=== PATIENT | female | born 1995 | race Asian ===

== ENCOUNTER 2021-01-27 08:00 | Outpatient (CLI) | payer OTHER ==
[2021-01-28 13:05] LABS: BILIRUBIN,URINE NEGATIVE (NEGATIVE); GLUCOSE, URINE (UA) NEGATIVE (NEGATIVE); KETONES,URINE (UA) NEGATIVE (NEGATIVE); LEUKOCYTE ESTERASE, URINE NEGATIVE (NEGATIVE); NITRITE,URINE NEGATIVE (NEGATIVE); OCCULT BLOOD,URINE TRACE-INTA (NEGATIVE); PROTEIN,URINE NEGATIVE (NEGATIVE); UROBILINOGEN,URINE 0.2 (NORMAL) E.U./dL (NORMAL)
[2021-01-28 13:10] LABS: CLARITY,URINE CLOUDY (CLEAR)
[2021-01-28 13:11] LABS: AMORPHOUS SEDIMENT,UR Few /LPF; BACTERIA,URINE Moderate /HPF (None Seen); SQUAMOUS EPITHELIAL CELL,UR MANY Squamous (<= Few); WBC,URINE 0-3 /HPF (0-5)
== END 2021-01-27 23:59 | disposition home or self-care (01) ==
LOC: LAB.R 08:00
PROVIDERS: ATTEND Nurse Practitioner Obstetrics & Gynecology
DX: Z32.01 Encounter for pregnancy test, result positive (principal)
CPT/HCPCS: 81001; 87086

== ENCOUNTER 2021-02-10 08:12 | Outpatient (CLI) | payer OTHER ==
--- NOTE | 2021-02-10 12:42 | Ultrasound Report ---
PROCEDURE: OB First Trimester INDICATIONS: TEST POSITIVE OUTSIDE/PRIOR DATING DATA: Last menstrual period (LMP): 11/16/2020. LMP-based estimated date of delivery (PK): 08/23/2021. First dating scan (date and location): 02/10/2021. Estimated date of delivery (PK) from first dating scan: 08/28/2021. TECHNIQUE: Real-time scanning was performed of the fetus and maternal pelvic organs, with image documentation. COMPARISON: None. FINDINGS: Embryo: Single living intrauterine gestation with estimated sonographic gestational age of approxima tely 11 weeks and 4 days based off crown-rump length measurement of approximately 4.9 cm. heart rate measured 162 bpm. No perigestational hemorrhage. Measurement variability in dating: +/- 4 weeks by LMP, +/- 7 days by mean sac diameter (use before 6 weeks gestation if crown-rump length not able to be measured), +/- 5 days by crown-rump length (6-12 weeks gestation). Maternal organs: Ovaries appear unremarkable. Maternal cervical length measured 3.3 cm. IMPRESSION: 1. Single living intrauterine gestation with estimated sonographic gestational age of approximately 1 1 weeks and 4 days which correlates with an estimated date of delivery of 08/28/2021. 2. Recommend continued clinical surveillance and follow-up imaging with routine second trimester feta l anatomic screening survey. Reviewed by: Tyrese Ordonez MD on 02/10/2021 11:41 AM MELINDA Approved by: Tyrese Ordonez MD on 02/10/2021 11:41 AM MELINDA Station ID: [id number]
== END 2021-02-10 08:13 | disposition home or self-care (01) ==
LOC: DI 08:12
PROVIDERS: ATTEND Nurse Practitioner Obstetrics & Gynecology
DX: Z32.01 Encounter for pregnancy test, result positive (principal)

== ENCOUNTER 2021-03-10 16:12 | Outpatient (CLI) | payer OTHER ==
[2021-03-11 08:47] LABS: HIV AG/AB 4TH GEN NON-REACTIVE (NON-REACTIVE)
[2021-03-11 12:26] LABS: HEPATITIS C ANTIBODY NON-REACTIVE (NON-REACTIVE)
[2021-03-11 13:01] LABS: AFP MOM 0.68; AGE RISK DOWN SYNDROME 1 IN 923; CALC'D GESTATIONAL AGE 16.3 weeks; CIGARETTE SMOKER? NOT GIVEN; DONOR AGE: EGG RETRIEVAL NOT GIVEN; DONOR EGG NO; ESTRIOL MOM 1.48; HCG MOM 0.91; HX OF NEURAL TUBE DEFECTS NO; INHIBIN A MOM 1.24; INSULIN DEPEND DIABETIC NO; MATERNAL WEIGHT 112 lbs; MSS DOWN SYNDROME RISK 1 IN 2256; MSS3 TRISOMY 18 RISK <1 IN 5000; NUMBER OF FETUSES 1; PREV PREGNANCY DOWN SYND NO; RISK FOR ONTD <1 IN 5000
== END 2021-03-10 16:13 | disposition home or self-care (01) ==
LOC: LAB 16:12
PROVIDERS: ATTEND Radiology Diagnostic Radiology
DX: Z34.90 Encounter for supervision of normal pregnancy, unspecified, unspecified trimester (principal); Z36.0 Encounter for antenatal screening for chromosomal anomalies; Z36.89 Encounter for other specified antenatal screening
CPT/HCPCS: 36415; 81511; 86762; 86787; 86803; 87389

== ENCOUNTER 2021-04-02 14:00 | Outpatient (CLI) | payer OTHER ==
--- NOTE | 2021-04-02 16:17 | Ultrasound Report ---
PROCEDURE: OB Detailed Eval INDICATIONS: SUPERVISION OF NORMAL OUTSIDE/PRIOR DATING DATA: Last menstrual period (LMP): 11/16/2020. LMP-based estimated date of delivery (PK): 08/23/2021. First dating scan (date and location): 02/10/2021. Estimated date of delivery (PK) from first dating scan: 08/28/2021. The below data below was generated using the calculated PK of 08/28/2021 TECHNIQUE: Real-time scanning was performed of the fetus, with image documentation and biometric measurements. Endovaginal scanning: Not indicated COMPARISON: 02/10/2021. FINDINGS: General: A single living intrauterine gestation is present. Presentation: Variable. Placenta: Placental position is anterior, without previa. Amniotic fluid index: 16.7 cm, thickness is greater than 50% for gestational age. heart rate: 153 beats per minute. Maternal cervical canal: 4.2 cm long; normal length is 2.5 cm or more. biometrics: Biparietal diameter: 4.5 cm, 19 weeks, 4 days Head circumference: 16.5 cm, 19 weeks, 1 day Abdominal circumference: 14.7 cm, 20 weeks, 0 day Femur length: 2.9 cm, 18 weeks, 6 days Estimated gestational age from initial scan: 18 weeks, 6 days. Composite gestational age from present scan: 19 weeks, 2 days Estimated weight and percentile: 292 g, 78th percentile. Measurement variability in biometric dating: +/- 10 days from 12-20 weeks gestation, +/- 2 weeks from 20-30 weeks gestation, +/- 3 weeks at 30 weeks gestation or later. Anatomic survey: Neuro: Ventricles are normal at less than 10 mm. Cisterna magna is normal at 3-11 mm. Cerebellum i s normal in size and morphology. Nuchal skin fold: Normal at less than 6 mm between 14 and 20 weeks gestational age. Face: Nose and lips, facial profile are normal. Spine: No evidence for spina bifida. Heart: 4-chambered heart is present, with normal ventricular outflow tracts. Diaphragm: Diaphragm is intact. Stomach: Left-sided stomach is present. Kidneys: No hydronephrosis. Normal is less than 5 mm in 2nd trimester, less than 7 mm in 3rd trimester. Cord: 3 vessel cord has orthotopic insertion. Bladder: Normal in size. Extremities: All 4 extremities are visualized. IMPRESSION: 1. Single live intrauterine with fetus in variable presentation. heart rate is 153 bp m. Normal amount of amniotic fluid. Normal growth. Estimated weight is at 78 percentile. 2. Normal anatomic survey. Reviewed by: Olivier Jennings MD on 04/02/2021 4:15 PM PDT Approved by: Olivier Jennings MD on 04/02/2021 4:15 PM PDT Station ID: [id number]
== END 2021-04-02 14:01 | disposition home or self-care (01) ==
LOC: DI 14:00
PROVIDERS: ATTEND Advanced Practice Midwife
DX: Z34.02 Encounter for supervision of normal first pregnancy, second trimester (principal)

== ENCOUNTER 2021-05-19 08:04 | Outpatient (CLI) | payer OTHER ==
[2021-05-19 09:54] LABS: HCT - HEMATOCRIT 41.1 % (37.0-47.0); HGB - HEMOGLOBIN 13.7 g/dL (12.0-16.0); MEAN CORPUSCULAR HEMOGLOBIN 31.1 pg (27.0-31.0); MEAN CORPUSCULAR HGB CONC 33.3 g/dL (32.0-36.0); MEAN CORPUSCULAR VOLUME 93.4 fL (81.0-99.0); MEAN PLATELET VOLUME 10.5 fL (7.9-10.8); RED BLOOD COUNT 4.4 10^6/uL (4.20-5.40); RED CELL DISTRIBUTION WIDTH 13.2 % (12.0-15.0); WHITE BLOOD COUNT 10.6 x10^3/uL (4.8-10.8)
== END 2021-05-19 08:05 | disposition home or self-care (01) ==
LOC: LAB 08:04
PROVIDERS: ATTEND Advanced Practice Midwife
DX: Z34.90 Encounter for supervision of normal pregnancy, unspecified, unspecified trimester (principal); Z36.0 Encounter for antenatal screening for chromosomal anomalies
CPT/HCPCS: 36415; 82950; 85027

== ENCOUNTER 2021-07-29 07:00 | Outpatient (CLI) | payer OTHER | END 2021-07-29 23:59 | disposition home or self-care (01) | LOC: LAB 07:00 | PROVIDERS: ATTEND Obstetrics & Gynecology | DX: Z34.90 Encounter for supervision of normal pregnancy, unspecified, unspecified trimester (principal); Z36.85 Encounter for antenatal screening for Streptococcus B | CPT/HCPCS: 87797 ==

== ENCOUNTER 2021-08-04 07:00 | Outpatient (CLI) | payer OTHER | END 2021-08-04 23:59 | disposition home or self-care (01) | LOC: LAB 07:00 | PROVIDERS: ATTEND Nurse Practitioner Obstetrics & Gynecology | DX: R30.0 Dysuria (principal) | CPT/HCPCS: 87086 ==

== ENCOUNTER 2021-08-17 03:52 | Inpatient (IN) | payer OTHER ==
[2021-08-17] MEDS ORDERED: LIDOCAINE-MPF 1% 30 ML VIAL ID PRN (04:34)
[2021-08-17] MEDS ORDERED: fentaNYL 100 MCG/2 ML VIAL IVP PRN (04:34)
[2021-08-17] MEDS ORDERED: SODIUM CHLORIDE FLUSH 0.9% 10 ML SYRINGE IVP PRN (04:34)
[2021-08-17] MEDS ORDERED: OXYTOCIN/SODIUM CHLORIDE 500 ML IV PRN (04:34)
[2021-08-17] MEDS ORDERED: miSOPROStoL 200 MCG TABLET BC PRN (04:34)
[2021-08-17] MEDS ORDERED: TRANEXAMIC ACID IN NACL 1,000 MG/100 ML BAG IV PRN (04:34)
[2021-08-17] MEDS ORDERED: METHYLERGONOVINE 0.2 MG/ML VIAL IM PRN (04:34)
[2021-08-17] MEDS ORDERED: CARBOPROST TROMETHAMINE 250 MCG/ML AMP IM PRN (04:34)
[2021-08-17] MEDS ORDERED: OXYTOCIN 10 UNIT/ML VIAL IM PRN (04:34)
[2021-08-17 05:54] LABS: BASOPHILS # (AUTO) 0.1 10^3/uL (0.0-0.1); BASOPHILS % (AUTO) 0.6 %; EOSINOPHILS # (AUTO) 0.1 10^3/uL (0.0-0.7); EOSINOPHILS % (AUTO) 0.9 %; HCT - HEMATOCRIT 45.8 % (37.0-47.0); HGB - HEMOGLOBIN 15.4 g/dL (12.0-16.0); LYMPHOCYTES % (AUTO) 18.5 %; MEAN CORPUSCULAR HGB CONC 33.6 g/dL (32.0-36.0); MEAN CORPUSCULAR VOLUME 92.3 fL (81.0-99.0); MEAN PLATELET VOLUME 10.7 fL (7.9-10.8); MONOCYTES # (AUTO) 0.8 10^3/uL (0.0-1.0); MONOCYTES % (AUTO) 7.4 %; NEUTROPHILS # (AUTO) 7.7 10^3/uL (1.5-6.6); NEUTROPHILS % (AUTO) 70.1 %; PLT - PLATELET COUNT 149 10^3/uL (130-450); RED BLOOD COUNT 4.96 10^6/uL (4.20-5.40); RED CELL DISTRIBUTION WIDTH 13.1 % (12.0-15.0)
[2021-08-17] MEDS: LACTATED RINGERS 1,000 ML IV SCH ×3 (09:55→16:35)
[2021-08-17] MEDS ORDERED: OXYTOCIN/SODIUM CHLORIDE 500 ML IV SCH (10:00)
--- NOTE | 2021-08-17 10:11 | HISTORY & PHYSICAL EXAMINATION ---
Admit History - Visit Reason Visit Reason: Contractions, Membranes rupture - : 1 Parity: 0 Premature: 0 Ectopic: 0 : 0 Care: positive: [facility] Risk/History: positive: None Complications This : positive: None Smoking Status: Never smoker - Mother's Labs Mother's Blood Type: positive: O Mother's RH: positive: Positive GBS: positive: Group B Step Negative Rubella Status: positive: Immune Meds/Allgy - Allergies Allergies/Adverse Reactions: Allergies Allergy/AdvReac Type Severity Reaction Status Date / Time No Known Drug Allergies Allergy Verified 08/17/21 05:24 Review of Systems - Constitutional Constitutional: denies: Fatigue, Fever, Chills - Eyes Eyes: denies: Blurred vision, Spots in vision, Dipolpia - Cardiovascular Cariovascular: denies: Palpitations, Chest pain, Edema - Respiratory Respiratory: denies: Cough, SOB at rest - Gastrointestinal Gastrointestinal: denies: Nausea, Vomiting - Integumentary Integumentary: denies: Rash, Pruritis - Neurological Neurological: denies: Headache Physical - Abdominal Exam Vital Signs: Temp Pulse Resp BP Pulse Ox 36.7 C 79 16 121/75 08/17/21 04:17 08/17/21 04:17 08/17/21 04:17 08/17/21 04:17 Contraction Frequency (min/apart): 4-8 Contraction Intensity: positive: Moderate Uterine Resting Tone: positive: Soft - Monitoring Heart Rate Baseline: 140 Strip Review: positive: Category I - Presentation Presentation: positive: Vertex - Vaginal Exam Membranes: positive: Membranes ruptured Dilation (in cm): 3 Effacement (%): 70 Station: positive: -1 Cervical Position: positive: Posterior - Speculum Exam Speculum Exam Performed: positive: No Findings: positive: Gross leak Plan for Labor - Plan For Labor I expect patient to be DC'd or transferred within 96 hours.: Yes Plan for Labor: Svetlana presents to [facility] with c/o SROM which occurred this morning (08/17/2021) @ approximately 0300 and was noted to be a moderate amount of clear fluid with a slight pink tinge to it. She denies vaginal bleeding. She reports intermittent contractions which she states she is coping well with but rating them 8/10. She states they seem to be irregular in frequency and duration. She reports +FM. She is supported by her Efrem. She has been a patient of [facility] for the duration of her which has been uncomplicated. She will be admitted to [facility] for expectant management. Dating criteria: LMP 11/16/2020 Initial U/S @ 11.4wks c/w LMP dating. Serial exams - agree OB Hx: G1: Current Medications: PNV, metoclopramide PRN Allergies: NKDA PMHx: no significant Surgical Hx: none Social Hx: Never smoker. No ETOH or IVDA. 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 Family Hx: HTN - mother; Asthma- father course: LMP: 11/16/2020 PK by LMP:08/23/2021 Initial U/S:@11.4wks gestation c/w LMP. PK 08/28/2021 FINAL PK: 08/23/2021 O pos/Rubella immune VZV: immune Genetic testing: Quad Neg FAS: WNL. Anterior placenta, no previa. MELANI WNL. 3VC. Size c/w dating (EFW 78%) Glucola 117 Influenza: 07/20 TDAP 05/25 Covid vaccine - first dose 06/09, #2 06/30 GBS 07/29 @ 36.3wks- Negative HSV: denies self and partner- confirmed Breast pump Rx- 05/25 MOD: . Husb: Efrem. Boy: Mega; probably epidural (reports low pain tolerance but does desire to labor some); pp contraception: POPs pap: 02/24/2021 WNL Physical Exam: Normocephalic, atraumatic Heart RRR w/o M/G/R Lungs CTAB Abdomen gravid, soft, nontender FHR baseline 140s, moderate variability, + accels, no decels Contractions palpate moderate every 4-8 minutes with soft resting tone SVE 3/70/-1, posterior. Vertex. Grossly ruptured membranes Bilateral LE's trace edema Mood is good. Assessment: 26yo @ 39.1wks gestation by LMP c/w 11.4wk U/S Early labor SROM, term GBS neg FHR Category I Plan: Admit for expectant management x 4 hours and repeat SVE. Consider Pitocin in 4 hours if SVE unchanged Continuous monitoring Jacuzzi PRN. Nitrous oxide PRN. Epidural per maternal request. Anticipate . Pt verbalized understanding and agrees to above plan. She denies further questions or concerns at this time. Plan:
--- NOTE | 2021-08-17 10:16 | PROVIDER PROGRESS NOTE ---
Labor Progress Note - Uterine Monitoring Uterine Monitoring Mode: positive: External toco Contraction Frequency (min/apart): 4-8 Contraction Intensity: positive: Moderate Uterine Resting Tone: positive: Soft - Monitoring Monitor Mode: positive: External ultrasound Heart Rate Baseline: 140 Heart Rate Variability: positive: Moderate (6-25 bmp) Accelerations: positive: Present, 15x15 Decelerations: positive: None Strip Review: positive: Category I - Vaginal Exam Dilation (in cm): 3 Effacement (%): 90 Station: -1 Cervical Position: Posterior - Labor Progress Note Labor Progress Note/Additional Text: S: Breathing through contractions with ease. Desires "wait and see" approach to pain management. She feels she will eventually get an epidural but desires to try other pain management options first. Her mood is good and her is supportive at the bedside. O: FHR baseline 140s, moderate variability, + accels, no decels Contractions palpate moderate every 4-8 minutes with soft resting tone SVE 3/90/-1, posterior. Vertex. A: 26yo @ 39.1wks gestation by LMP c/w 11.4wk U/S Early labor SROM x 7 hrs FHR Category I P: Initial pitocin for labor augmentation with titration per protocol. Continuous monitoring. Jacuzzi PRN. Nitrous oxide PRN. Epidural per maternal request. Anticipate .
[2021-08-17] MEDS: SODIUM CHLORIDE FLUSH 0.9% 10 ML SYRINGE IVP SCH ×2 (12:50→17:12)
[2021-08-17] MEDS ORDERED: ROPIVACAINE 0.2% 200 MG/100 ML BAG EP ONE (17:22)
[2021-08-17] MEDS ORDERED: ROPIVACAINE 0.2% 200 MG/100 ML BAG EP PRN (17:49)
[2021-08-17] MEDS ORDERED: ONDANSETRON 4 MG/2 ML VIAL IVP PRN (17:49)
[2021-08-17] MEDS ORDERED: NALOXONE 0.4 MG/ML VIAL IVP PRN (17:49)
[2021-08-17] MEDS ORDERED: ePHEDrine 50 MG/ML VIAL IVP PRN (17:49)
--- NOTE | 2021-08-17 17:49 | ANESTHESIA ---
Pre-Anesthesia VS, & Labs - Diagnosis Active labor - Procedure vaginal delivery Vital Signs: Temp Pulse Resp BP Pulse Ox 36.7 C 79 16 121/75 08/17/21 04:17 08/17/21 04:17 08/17/21 04:17 08/17/21 04:17 Height: 5 ft Weight (kg): 68.039 kg Body Mass Index: 29.2 BMI Classification: Overweight - NPO Last Fluid Intake: clear liquids - Is Patient ?: Yes - Lab Results Current Lab Results: Laboratory Tests 08/17/21 05:45: Blood Type O POSITIVE, Antibody Screen NEGATIVE 08/17/21 05:45: WBC 11.0 H, RBC 4.96, Hgb 15.4, Hct 45.8, MCV 92.3, MCH 31.0, MCHC 33.6, RDW 13.1, Plt Count 149, MPV 10.7, Neut # (Auto) 7.7 H, Lymph # (Auto) 2.0, [place] # (Auto) 0.8, Eos # (Auto) 0.1, Baso # (Auto) 0.1, Absolute Nucleated RBC 0.00, Nucleated RBC % 0.0 Lab results reviewed: Yes Fish Bones: 08/17/21 05:45 Home Medications and Allergies Active Medications Carboprost Tromethamine (Carboprost Tromethamine 250 Mcg/Ml Amp) 250 mcg IM Q15M PRN PRN Reason: Step 4: Hemorrhage protocol Stop: 08/22/21 04:35 Fentanyl (Fentanyl 100 Mcg/2 Ml Vial) 50 mcg IVP Q1H PRN PRN Reason: PAIN Oxytocin/Sodium Chloride (Pitocin/Sodium Chloride) 500 mls @ 999 mls/hr IV PRN PRN; Protocol PRN Reason: POST- HEMORR PREVENTION Stop: 08/22/21 04:35 Tranexamic Acid (Tranexamic 1,000 Mg/100ml-Nacl) 1,000 mg in 100 mls @ 600 mls /hr IV .ONCE PRN PRN Reason: EBL >1200mL and within 3hr Stop: 08/22/21 04:35 Lactated Ringer's (Lr) 1,000 mls @ 150 mls/hr IV .Q6H40M YULY Last Admin: 08/17/21 16:35 Dose: 150 mls/hr Documented by: Oxytocin/Sodium Chloride (Pitocin/Sodium Chloride) 500 mls @ 1 mls/hr IV TITR YULY; Protocol Last Titration: 08/17/21 15:03 Dose: 10 milliunit/min, 10 mls/hr Documented by: Lidocaine HCl (Lidocaine-Mpf 1% 30 Ml Vial) 30 ml ID .ONCE PRN PRN Reason: PERINEAL REPAIR Stop: 08/22/21 04:35 Methylergonovine Maleate (Methylergonovine 0.2 Mg/Ml Vial) 0.2 mg IM .ONCE PRN PRN Reason: Step 2: Hemorrhage protocol Stop: 08/22/21 04:35 Misoprostol (Misoprostol 200 Mcg Tablet) 800 mcg BC .ONCE PRN PRN Reason: Step 3: Hemorrhage protocol Stop: 08/22/21 04:35 Oxytocin (Oxytocin 10 Unit/Ml Vial) 10 unit IM .ONCE PRN PRN Reason: Step one: If no IV access Stop: 08/22/21 04:35 Sodium Chloride (Sodium Chloride Flush 0.9% 10 Ml Syringe) 10 ml IVP PRN PRN PRN Reason: NEEDED PER PROVIDER ORDERS Sodium Chloride (Sodium Chloride Flush 0.9% 10 Ml Syringe) 10 ml IVP 0100,0900,1700 YULY Last Admin: 08/17/21 17:12 Dose: Not Given Documented by: Allergies/Adverse Reactions: Allergies Allergy/AdvReac Type Severity Reaction Status Date / Time No Known Drug Allergies Allergy Verified 08/17/21 05:24 Anes History & Medical History - Anesthetic History Family history of Anesthesia Complications: Denies Family history of Malignant Hyperthermia: Denies - Medical History Cardiovascular: reports: None Pulmonary: reports: None Gastrointestinal: reports: None Urinary: reports: None Neuro: reports: None Musculoskeletal: reports: None Endocrine/Autoimmune: reports: None Blood Disorders: reports: None Skin: reports: None Smoking Status: Never smoker Psychosocial: reports: No issues indicated History of Cancer?: No - Obstetrical History : 1 Parity: 0 Events: reports: None Complications: reports: None Exam General: Alert, Oriented x3, Cooperative, No acute distress Dental: WNL Mouth Openin Fingerbreadth Neck Mobility: Normal Mallampati classification: II Thyromental Distance: 4-6 cm Mental/Cognitive Status: Alert/Oriented X3, Normal for patient Plan Anesthesia Type: Epidural Consent for Procedure(s) Verified and Reviewed: Yes Code Status: Attempt Resuscitation ASA classification: 2-Mild systemic disease Is this case an emergency?: No
--- NOTE | 2021-08-17 17:59 | PROVIDER PROGRESS NOTE ---
Labor Progress Note - Uterine Monitoring Uterine Monitoring Mode: positive: External toco Contraction Frequency (min/apart): 3-5 Contraction Intensity: positive: Moderate to strong Uterine Resting Tone: positive: Soft - Monitoring Monitor Mode: positive: External ultrasound Heart Rate Baseline: 140 Heart Rate Variability: positive: Moderate (6-25 bmp) Accelerations: positive: Present, 15x15 Decelerations: positive: None Strip Review: positive: Category I - Vaginal Exam Dilation (in cm): 4 Effacement (%): 90 Station: 0 Cervical Position: Midposition - Labor Progress Note Labor Progress Note/Additional Text: S: Pt tearful and requests epidural for pain management. She is coping well with contractions but states she is very tired as she has been up most of the night. Her is supportive at the bedside. O: FHR baseline 140s, moderate variability, + accels, no decels Contractions palpate moderate every 3-5 minutes with soft resting tone SVE 4/90/0, midposition Pitocin at 10mU/mL A: 26yo @ 39.1wks gestation SROM x 15hrs Early labor GBS neg FHR Category I P: Continue pitocin for labor augmentation with titration per protocol Continuous monitoring Maintain epidural for pain management. Anticipate .
--- NOTE | 2021-08-17 23:31 | CONSULTATION NOTE ---
Surgery Consult - Admit Date Hospital Admission Date: 08/17/21 - Consult Date Consult Date: 08/17/21 Requesting Provider: BRIA Jiménez - Home Meds/Allergies Allergies/Adverse Reactions: Allergies Allergy/AdvReac Type Severity Reaction Status Date / Time No Known Drug Allergies Allergy Verified 08/17/21 05:24 - Vital Signs Vital Signs: Last Vital Signs Temp 98.1 F 08/17/21 04:17 Pulse 79 08/17/21 04:17 Resp 16 08/17/21 04:17 BP 121/75 08/17/21 04:17 Pulse Ox Intake & Output: Intake & Output 08/14/21 08/15/21 08/16/21 08/17/21 23:59 23:59 23:59 23:59 Intake Total 1233.533 Output Total 100 Balance 1133.533 - Lab Results Result Diagrams: 08/17/21 05:45 - Consultation Note Consultation Note: Patient is a 26-year-old G1 now P1 who had a spontaneous vaginal delivery shortly before I was called. During the obstetrical laceration repair, BRIA Singer noted a periclitoral laceration that was repaired and hemostatic, then noted a bleeding cervical laceration and called for my assistance. The laceration was brought into view with fundal pressure and grasped with a ring forcep. The posterior edge of the cervix was torn longitudinally and this was repaired with a short segment of running 3-0 Vicryl. After the strings were cut, the cervix was noted to be hemostatic and care was turned back over to BRIA Singer for continued care of the patient. .
[2021-08-18] MEDS ORDERED: HYDROCORTISONE 1% CREAM 28 GM TUBE PR PRN (00:30)
[2021-08-18] MEDS ORDERED: WITCH HAZEL/GLYCERIN 1 PAD TOP PRN (00:30)
--- NOTE | 2021-08-18 00:40 | DELIVERY NOTE ---
Delivery Note - Labor Labor: positive: Spontaneous, Augmented by oxytocin - Delivery Method Delivery Method: positive: Spontaneous vaginal delivery - Presentation Presentation: positive: Vertex, SUNG - right occiput anterior - Nuchal Cord Nuchal Cord: positive: Present, Reduced - Amniotic Fluid Description Amniotic Fluid Description: positive: Clear - Episiotomy Type Episiotomy Type: positive: None - Laceration Laceration: positive: 1st degree, Cervical, Other - Suture Suture Type: positive: Vicryl Suture Size: positive: 3-0, 4-0 - Delivery Outcome Delivery Outcome: positive: Livebirth - [place]: positive: Placed in direct skin contact with mother, Stimulated, Warmed, Dalton used [place] sex: positive: Male - Cord Cord: positive: 3 vessels - Placenta Placenta: positive: Intact, Spontaneous - Estimated Blood Loss Estimated Blood Loss (in cc): 300 - Post Delivery Events Post Delivery Events: positive: No post delivery events - Delivery Comments (Free Text/Narrative) Delivery Comments (Free Text/Narrative): Labor: This 26yo @ 39.1wks gestation by LMP c/w 11.4wk U/S presented on 08/17/2021 at approximately 0330 with c/o vaginal leakage of clear fluid. SVE was 3/90/0 and vertex. FHR pattern demonstrated Category I pattern throughout labor. Pitocin initiated for labor augmentation with a maximum infusion rate of 10mU/mL. Normal labor course. Epidural placed per maternal request. Pt progressed to c/c/+1 @ 2036 with onset of pushing at 2106. : Normal of viable male on 08/17/2021 @ 2237. Nuchal cord x 1 was reduced. The was placed on maternal abdomen, stimulated, dried, and placed skin to skin. 's were 8/9 at 1 and 5 minutes respectively. Pitocin administered via IV for hemostasis. The umbilical cord was allowed to stop pulsating at which time it was doubly clamped by CNM and cut by FOB. 3VC. Cord blood was obtained. Fundal massage and gentle cord traction applied for active managmeent of the third stage. Placenta delivered spontaneously and intact @ 2242. EBL 300mL. Fourth stage: Uterine fundus firm and there is no excessive bleeding. The perineum, vagina, and cervix were inspected and found to have a 1st degree periclitoral which was repaired using a 4-0 vicryl on an SH needle in standard fashion and under sterile conditions. Posterior cervical laceration noted and physician counselor nurses' association requested to present for repair (See physician consultation note). Vaginal examination following repair was performed. Tissues well approx imated. initiated. Family bonding well. Both mother and baby were left in stable condition.
[2021-08-18] MEDS: ACETAMINOPHEN 500 MG TABLET PO SCH ×3 (10:43→18:52)
[2021-08-18] MEDS: IBUPROFEN 800 MG TABLET PO SCH ×4 (10:44→18:53)
--- NOTE | 2021-08-18 15:48 | PROVIDER PROGRESS NOTE ---
Subjective - Subjective Subjective: S: Bonding well with baby. without difficulty. Bleeding decreased and is light. Pain well controlled with oral medications. supportive at the bedside. O: BP 120/62, HR 83, RR 18, T 36.6 Heart RRR w/o M/G/R, lungs CTAB, abdomen soft and nontender with fundus firm and U-1, perineum intact, light lochia rubra, bilateral LE's trace edema. A: 26yo -->P1 PPD#1 s/p TSVD viable male Normal recovery P: Continue routine pp care and medications. Evaluate for discharge home tomorrow. Pt verbalized understanding and agrees to above plan. She denies further questions or concerns at this time. Objective - Vital Signs/Intake & Output Vital Signs: Vital Signs x48h Temp Pulse Resp BP Pulse Ox 08/18/21 14:45 36.6 C 83 18 120/62 100 08/18/21 10:44 36.4 C L 105 H 17 129/78 100 Intake & Output: Intake & Output 08/15/21 08/16/21 08/17/21 08/18/21 23:59 23:59 23:59 23:59 Intake Total 2733.533 420 Output Total 100 550 Balance 2633.533 -130 - Lab Results Fish Bones: 08/17/21 05:45
[2021-08-18] MEDS: LACTATED RINGERS 1,000 ML IV SCH ×2 (18:51→18:53)
[2021-08-18] MEDS: SODIUM CHLORIDE FLUSH 0.9% 10 ML SYRINGE IVP SCH ×3 (18:51→18:53)
[2021-08-19] MEDS: IBUPROFEN 800 MG TABLET PO SCH ×3 (02:40→11:50)
[2021-08-19] MEDS: ACETAMINOPHEN 500 MG TABLET PO SCH ×2 (02:41→05:45)
[2021-08-19 08:16] VITALS: BP 113/67
--- NOTE | 2021-08-19 08:28 | Discharge Plan ---
Discharge Plan Problem Reviewed?: Yes Disposition: Home, Self Care Condition: Good Diet: Regular Activity Restrictions: No Restrictions Shower Restrictions: No Driving Restrictions: No Weight Bearing: Full Weight No Smoking: If you smoke, Please STOP! Call for help. Follow-up with: Marjorie Singer CNM, ARNP [Provider Admit Priv/Credential] -
--- NOTE | 2021-08-20 16:54 | DISCHARGE SUMMARY ---
Discharge Summary Condition at Discharge: Good Discharge Disposition: 01 Home, Self Care - HOSPITAL COURSE Hospital Course: Date of Admission: 08/17/2021 Date of Discharge 08/19/2021 Diagnosis on Admission: 1. 26yo @ 39.1wks gestation by LMP c/w 11.4wk U/S 2. Early labor 3. SROM, term 4. GBS neg 5. FHR Category I Diagnosis on Discharge: 1. 26yo PPD#2 s/p TSVD viable male 2. 3. Normal recovery Brief history: She is a patient of [facility] who presented on 08/17/2021 @ approximately 0330 with c/o SROM. SVE was 3/90/0 and vertex. Epidural placed per maternal request. Pt progressed to spontaneously deliver a viable male infant on 08/17/2021 @ 2237. Apgars were 8/9 at 1 and 5 minutes respectively. EBL 300mL. Posterior cervical laceration was repaired by physician as well as a 1st degree periclitoral laceration which was repaired by CNM in standard fashion and under sterile conditions. She has been doing well in her course. She is ambulating and tolerating a regular diet. She is urinating without difficulty and her lochia is normal. Her pain is well controlled with oral medications. She is without difficulty and bonding well with her baby. Her is supportive at the bedside. She will be discharged home today on day #2 with instructions to continue taking her vitamin while and to continue taking ibuprofen and tylenol OTC as needed for pain management. She intends to f/u with myself at [facility] in 1 week or sooner if needed. She has been given precautions to call if she has any worsening fevers, chills, abdominal pain, increased vaginal bleeding or foul smelling vaginal lochia. Physical Exam: Normocephalic, atraumatic. Heart RRR w/o M/G/R, lungs CTAB, abdomen soft and nontender with fundus firm at U-2, perineum intact and repair without edema, light lochia rubra, bilateral LE's trace edema. Mood is good. - ALLERGIES Allergies/Adverse Reactions: Allergies Allergy/AdvReac Type Severity Reaction Status Date / Time No Known Drug Allergies Allergy Verified 08/17/21 05:24 - LABS Result Diagrams: 08/17/21 05:45
== END 2021-08-19 14:30 | disposition home or self-care (01) | DRG 768 ==
LOC: WFO 03:52 → FBP 03:54 → WFO 04:33 → FBP 04:34
PROVIDERS: ADMIT Nurse Practitioner Obstetrics & Gynecology; ATTEND Nurse Practitioner Obstetrics & Gynecology
PROC: 0UQC7ZZ Repair Cervix, Via Natural or Artificial Opening (ICD-10-PCS; principal; 2021-08-17)
PROC: 10E0XZZ Delivery of Products of Conception, External Approach (ICD-10-PCS; 2021-08-17)
PROC: 0UQMXZZ Repair Vulva, External Approach (ICD-10-PCS; 2021-08-17)
DX: O69.81X0 Labor and delivery complicated by cord around neck, without compression, not applicable or unspecified (principal); Z37.0 Single live birth; O71.3 Obstetric laceration of cervix; O71.82 Other specified trauma to perineum and vulva; Z3A.39 39 weeks gestation of pregnancy
CPT/HCPCS: 36415; 85025; 86850; 86900; 86901; A9270; J7120; 99215

== ENCOUNTER 2021-10-30 08:38 | Outpatient (CLI) | payer OTHER ==
--- NOTE | 2021-10-30 09:23 | XRAY Report ---
PROCEDURE: Wrist 3 View LT INDICATIONS: ULNA ARTHRALGIA TECHNIQUE: 3 views of the wrist were acquired. COMPARISON: None FINDINGS: Bones: No fractures or dislocations. Joint spacing is maintained. No suspicious bony lesions. Soft tissues: No suspicious soft tissue calcifications. IMPRESSION: Unremarkable wrist radiographs. Reviewed by: Wesly Garcia DO on 10/30/2021 8:22 AM AMANDA Approved by: Wesly Garcia DO on 10/30/2021 8:22 AM [facility] Station ID: [id number]
== END 2021-10-30 08:39 | disposition home or self-care (01) ==
LOC: DI 08:38
PROVIDERS: ATTEND Family Medicine
DX: M25.532 Pain in left wrist (principal)

== ENCOUNTER 2023-03-16 14:00 | Outpatient (CLI) | payer OTHER ==
[2023-03-16 18:05] LABS: BASOPHILS % (AUTO) 0.6 %; EOSINOPHILS # (AUTO) 0.1 10^3/uL (0.0-0.7); HCT - HEMATOCRIT 46.2 % (37.0-47.0); HGB - HEMOGLOBIN 15.1 g/dL (12.0-16.0); LYMPHOCYTES # (AUTO) 2.6 10^3/uL (1.5-3.5); LYMPHOCYTES % (AUTO) 38.3 %; MEAN CORPUSCULAR HEMOGLOBIN 29.2 pg (27.0-31.0); MEAN CORPUSCULAR HGB CONC 32.7 g/dL (32.0-36.0); MEAN CORPUSCULAR VOLUME 89.2 fL (81.0-99.0); MEAN PLATELET VOLUME 10.6 fL (7.9-10.8); MONOCYTES # (AUTO) 0.4 10^3/uL (0.0-1.0); MONOCYTES % (AUTO) 5.6 %; NEUTROPHILS # (AUTO) 3.6 10^3/uL (1.5-6.6); NEUTROPHILS % (AUTO) 54.2 %; PLT - PLATELET COUNT 311 10^3/uL (130-450); RED BLOOD COUNT 5.18 10^6/uL (4.20-5.40); RED CELL DISTRIBUTION WIDTH 12.3 % (12.0-15.0); WHITE BLOOD COUNT 6.7 x10^3/uL (4.8-10.8)
[2023-03-16 18:18] LABS: ALBUMIN 4.7 g/dL (3.2-5.5); ALBUMIN/GLOBULIN RATIO 1.3 (1.0-2.2); BILIRUBIN,TOTAL 0.6 mg/dL (0.2-1.0); CALCIUM 9.3 mg/dL (8.5-10.3); CREATININE 0.6 mg/dL (0.4-1.0); POTASSIUM 3.8 mmol/L (3.5-5.0); TOTAL PROTEIN 8.2 g/dL (6.7-8.2)
[2023-03-16 18:30] LABS: THYROID STIMULATING HORMONE 0.81 uIU/mL (0.34-5.60)
== END 2023-03-16 14:15 | disposition home or self-care (01) ==
LOC: LAB.N 14:00
PROVIDERS: ATTEND Specialist
DX: R55 Syncope and collapse (principal)
CPT/HCPCS: 36415; 80053; 84443; 85025

== ENCOUNTER 2023-03-31 22:22 | Emergency (ER) | payer OTHER ==
[2023-03-31 22:37] VITALS: BP 113/69
[2023-03-31] MEDS ORDERED: predniSONE 20 MG TABLET PO STA (22:47)
--- NOTE | 2023-03-31 22:47 | ED Physician Documentation ---
History of Present Illness - Stated complaint Stated Complaint: HIVES - Chief complaint Chief Complaint: General - Additonal information Additional information: Patient 28-year-old female presenting to the emergency department chief complain t of hives. Itchy raised rash developed primarily on her back, anterior chest and upper extremities. Began at 1800 hrs. this evening. No previous allergies, known allergic contacts. Denies any yard work, new detergents, new animal contacts, new foods. Denies any new medications. Denies chronic medical issues. Review of Systems Constitutional: denies: Fever Eyes: denies: Loss of vision Ears: denies: Loss of hearing Nose: denies: Rhinorrhea / runny nose Throat: denies: Dental pain / toothache Respiratory: denies: Dyspnea, Wheezing GI: denies: Abdominal Pain : denies: Dysuria Skin: reports: Rash PD PAST MEDICAL HISTORY - Past Medical History Cardiovascular: None Respiratory: None Neuro: None Endocrine/Autoimmune: None GI: None : None Musculoskeletal: None Derm: None - Present Medications Home Medications: Ambulatory Orders Medication Instructions Recorded Confirmed diphenhydrAMINE [Benadryl] 25 mg PO HS PRN #30 cap 03/31/23 predniSONE [Deltasone] 40 mg PO DAILY #5 tablet 03/31/23 - Allergies Allergies/Adverse Reactions: Allergies Allergy/AdvReac Type Severity Reaction Status Date / Time No Known Drug Allergies Allergy Verified 03/31/23 22:33 - Social History Smoking Status: Never smoker PD ED PE NORMAL - Vitals Vital signs reviewed: Yes - General General: Alert and oriented X 3, No acute distress, Well developed/nourished - HEENT HEENT: Atraumatic - Neck Neck: Supple, no meningeal sign - Cardiac Cardiac: RRR, No murmur, No gallop - Respiratory Respiratory: No respiratory distress - Abdomen Abdomen: Normal bowel sounds - Female Female : Deferred - Rectal Rectal: Deferred - Back Back: No CVA TTP - Derm Derm: Other (Urticaria prominently on the flanks bilaterally as well as the upper back and forearms.) Results - Vitals Vitals: Vital Signs - 24 hr 03/31/23 22:30 Temperature 37.1 C Heart Rate 73 Respiratory 18 Rate Blood Pressure 113/69 O2 Saturation 100 Oxygen O2 Source Room air PD Medical Decision Making - ED course Complexity details: d/w patient ED course: Patient 28-year-old female presenting to the emergency department with urticarial rash primarily on the flanks, upper back, and forearms. Clear aeration in all lung f[place] and no respiratory distress. Nothing to suggest anaphylaxis. Patient denied any fever, involvement of mucous membranes and there is nothing in her presentation that is suggestive of a more significant or life-threatening rash at this time. Was given dose of prednisone here in the emergency department. Did endorse for taking an antihistamine prior to arrival. Will discharge on course prednisone as well as regular Benadryl. Will encourage prompt return for any new or worsening symptoms. Departure - Departure Disposition: Home, Self Care Clinical Impression: Hives Instructions: ED Urticaria Prescriptions: diphenhydrAMINE [Benadryl] 25 mg PO HS PRN #30 cap PRN Reason: Itching predniSONE [Deltasone] 40 mg PO DAILY #5 tablet Comments: Thank you for allowing us to care for you today would be general. Today in the emergency department you are diagnosed with acute urticaria, also known as hives. Attached is some information about this condition. As we discussed in most instances were never able to find out what the allergen is while in the emergency department. There are some medications that like you to begin including regular use of an oral antihistamine and a short course of prednisone. Other things that can be very helpful for managing the itch and discomfort associated with your rash include cool baths or chamomile baths. I would like you to follow-up with your primary care doctor soon as possible. Please be aware that there could be something in your environment that triggered today's rash and if so it has the potential to recur and your symptoms could worsen. If you do develop any worsening symptoms such as worsening rash, fever, involvement of mucous membranes of the mouth or in the genital area or if you develop any shortness of breath or wheeze its important that you either call 911 or return to the emergency room immediately.
== END 2023-03-31 23:09 | disposition home or self-care (01) ==
LOC: ED 22:22
DX: L50.9 Urticaria, unspecified (principal)
CPT/HCPCS: 99282; 99283; J7512